=== PATIENT | female | born 1975 | race Caucasian/White ===

== ENCOUNTER 2016-06-18 13:50 | Inpatient (IN) | payer MEDICAID ==
[2016-06-18] VITALS (26 sets, daily range): BP systolic 96–149; BP diastolic 54–112; BMI 22.8
[~2016-06-18] VITALS: Ht 170.2 cm; Wt 60.8 kg
[~2016-06-18 13:50] MED LIST: BACLOFEN20 M1 PO; K-DUR20 MEQ PO; KLONOPIN1 MG PO; PHENOBARBITAL97.2 MG PO; PROZAC40 MG PO; SINGULAIR10 MG PO; SOMA350 MG PO; ULTRAM50 MG PO
[2016-06-18 15:18] LABS: HCG SERUM NEGATIVE (NEGATIVE)
[2016-06-18 15:21] LABS: UDS - AMPHET NEGATIVE QUAL (NEGATIVE); UDS - BARB POSITIVE QUAL (NEGATIVE); UDS - BENZO POSITIVE QUAL (NEGATIVE); UDS - COCAINE NEGATIVE QUAL (NEGATIVE); UDS - METH NEGATIVE QUAL (NEGATIVE); UDS - OPIATE NEGATIVE QUAL (NEGATIVE); UDS - PCP NEGATIVE QUAL (NEGATIVE); UDS - THC POSITIVE QUAL (NEGATIVE)
[2016-06-18 15:27] LABS: BASOPHILS 0.2 % (0-2); EOSINOPHILS 1.5 % (0-7); HEMATOCRIT 40.1 % (36.0-48.0); IMMATURE GRANULOCYTES 0.2 % (0-5); LYMPHOCYTES 22.2 % (15-50); MCH 30.6 pg (26.0-34.0); MCHC 34.9 g/dL (31.0-37.0); MCV 87.6 fL (80.0-100.0); MEAN PLATELET VOLUME 10.4 fL (7.4-10.4); MONOCYTES 13.3 % (2-11); NEUTROPHILS 62.6 % (40-80); RBC 4.58 10x6/uL (4.00-5.40); WBC 5.4 10x3/uL (4.8-10.8)
[2016-06-18 15:28] LABS: PLATELET COUNT 165 10x3/uL (130-400)
[2016-06-18 15:29] LABS: APPEARANCE HAZY (CLEAR); BILIRUBIN NEGATIVE (NEGATIVE); COLOR YELLOW (YELLOW); GLUCOSE NEGATIVE (NEGATIVE); KETONE NEGATIVE (NEGATIVE); LEUKOCYTE ESTERASE TRACE (NEGATIVE); NITRITE POSITIVE (NEGATIVE); PROTEIN TRACE mg/dL (NEGATIVE); UROBILINOGEN NORMAL (NORMAL)
[2016-06-18 15:30] LABS: BACTERIA MANY /hpf (NONE SEEN); EPITHELIAL CELLS 0-5 /hpf (0-5); RED CELLS - URINE 0-5 /hpf (0-5); WHITE CELLS - URINE 0-5 /hpf (0-5)
[2016-06-18 15:36] LABS: ALBUMIN 2.8 g/dL (3.4-5.0); ALKALINE PHOSPHATASE 65 U/L (46-116); ALT (SGPT) 40 U/L (10-68); BILIRUBIN - TOTAL 0.92 mg/dL (0.2-1.3); CALC OSMOLALITY 273 mosm/kg (275-300); CALCIUM 7.5 mg/dL (8.5-10.1); CARBON DIOXIDE 26.2 mmol/L (21.0-32.0); CHLORIDE - SERUM 104 mmol/L (98-107); CREATININE - SERUM 0.8 mg/dL (0.6-1.3); GLUCOSE 91 mg/dL (74-106); POTASSIUM - SERUM 3.6 mmol/L (3.5-5.1); PROTEIN - SERUM 5.9 g/dL (6.4-8.2); SODIUM 137 mmol/L (136-145); UREA NITROGEN 12 mg/dL (7-18); eGFR NON AFRICAN AMERICAN 85 mL/min (90-120)
[2016-06-18 15:46] LABS: ACETAMINOPHEN 2.4 ug/mL (10.0-30.0); PHENOBARBITAL 58.4 ug/mL (15.0-40.0)
--- NOTE | 2016-06-18 17:12 | NUR ---
REPORT RECIEVED FROM ISHAAN. WAITING TO RECIEVE FROM
--- NOTE | 2016-06-18 17:45 | NUR ---
PT ARRIVED AT THIS TIME TO UNIT NOT RESPONSIVE AND ON VENT. NOT SEDATED. ASSESSMENT PERFORMED, PLEASE REVIEW ASSESSMENT FOR INFORMATION. ON LEVOFED, TITRATED TO ORDER PARAMETER GUIDELINES. DR NORTON NOTIFIED VIA PHONE AT THIS TIME. DR RAVI ON UNIT ASSESSING PT AT THIS TIME. ORDERS RECIEVED. ALSO NOTED PT TEMP IS 91.8 RECTALLY, BEAR HUGGER PROVIDED. RESTRAINTS PLACED FOR PT SAFETY TO NOT EXTUBATE SELF. WILL CONTINUE PLAN OF CARE.
--- NOTE | 2016-06-18 18:00 | NUR ---
CONSULT FOR DR NORTON NOTED. NOTIFIED DR NORTON AT THIS TIME.
--- NOTE | 2016-06-18 18:46 | NUR ---
CONSULT FOR DR DAI NOTED. FAXED CONSULT TO [facility]. VERIFICATION OF FAX BY ELISA AT [facility]. ELISA STATED SHE WILL PLACE CONSULT FAX IN DR MERCER BOX.
--- NOTE | 2016-06-18 19:00 | NUR ---
1900: Pt temp 96.7 Oral at this time. Pt remains with Moody Duenas to increase temp.
--- NOTE | 2016-06-18 20:00 | NUR ---
2000: Dr. Salgado here at bedside. New orders rec'd at this time.
--- NOTE | 2016-06-18 21:00 | NUR ---
2100: Bilateral knee high SCDs placed.
--- NOTE | 2016-06-18 22:45 | NUR ---
2245: Pt HR decreased at this time 55-59 bpm. Pt remains with SBP 120's via Left radial ART line. Levophed titrate to keep SBP >90.
--- NOTE | 2016-06-18 23:00 | NUR ---
2300: ABG value and HR change called to Dr. Salgado. New orders rec'd and noted.
[2016-06-19] VITALS (92 sets, daily range): BP systolic 87–147; BP diastolic 52–109; Ht 170.2 cm; Wt 60.8 kg
--- NOTE | 2016-06-19 | NUR ---
0000: Pt mother here at bedside. Pt mother states the pt is not and she wishes to be NOK/POA. Pt's mother states that pt has been turned down x2 for disability and pt has been at her "wits end." Mother states; "she lives in a [place] with no running water." Pts mother states she has not been doing well.
--- NOTE | 2016-06-19 00:15 | NUR ---
0015: Pt temp increased 97.7 Oral at this time. Moody france paused, but remains in place.
--- NOTE | 2016-06-19 02:00 | NUR ---
0200: Pt is bigmeinal showing HR 100 bpm, but with variable pulse palpated. Pt with conduceted PVC per ART line with decresed BP with PVC. ABG done and resuilts called to Dr. Salgado. KCL started via CVL at this time.
[2016-06-19 05:09] LABS: BASOPHILS 0.1 % (0-2); EOSINOPHILS 0 % (0-7); HEMATOCRIT 41.9 % (36.0-48.0); HEMOGLOBIN 14.7 g/dL (12-16); IMMATURE GRANULOCYTES 0.3 % (0-5); LYMPHOCYTES 4.7 % (15-50); MCH 30.4 pg (26.0-34.0); MCHC 35.1 g/dL (31.0-37.0); MCV 86.6 fL (80.0-100.0); MEAN PLATELET VOLUME 10.4 fL (7.4-10.4); MONOCYTES 9.5 % (2-11); NEUTROPHILS 85.4 % (40-80); PLATELET COUNT 201 10x3/uL (130-400); RBC 4.84 10x6/uL (4.00-5.40); RDW 11.9 % (11.5-14.5); WBC 16.6 10x3/uL (4.8-10.8)
[2016-06-19 05:33] LABS: ALBUMIN 2.8 g/dL (3.4-5.0); ANION GAP 12.5 mmol/L (8-16); BILIRUBIN - TOTAL 0.6 mg/dL (0.2-1.3); CALCIUM 7.2 mg/dL (8.5-10.1); CREATININE - SERUM 0.9 mg/dL (0.6-1.3); MAGNESIUM - SERUM 1.3 mg/dL (1.8-2.4); PHOSPHOROUS 1.8 mg/dL (2.5-4.9); POTASSIUM - SERUM 3.5 mmol/L (3.5-5.1); PROTEIN - SERUM 5.9 g/dL (6.4-8.2)
--- NOTE | 2016-06-19 06:00 | NUR ---
0600: Family here. Family states; "I am her ." Update provided at this time. Family member () was with pt on last admission. Pt remains on Vent with RR 16-18x with SPO2 98%. Pt remains with SR with frequent PVCs seen. Pt remains on Levophed gtt to keep SBP >90.
--- NOTE | 2016-06-19 07:30 | NUR ---
AT 0717 75MG LITOAINE ADMIN ORDERED FOR BIGEMMIDY RHYTHM, PT HEART RATE THEN NOTED AT SINUS RHYTHM. AT THIS TIME NOTED RHYTHM AGAIN AT BIGEMMIDY. CALLED DR NORTON FOR ORDERS. NOTED ORDERS TO REPLACE MAGNESIUM WHICH IS AT 1.3, INCREASE BICARB RATE TO 200ML/HOUR, AND CONSULT CARDIOLOGY FOR FREQUENT PVC. ORDERS PLACED AND IN PROCESS.
--- NOTE | 2016-06-19 07:45 | NUR ---
CALLED DR MEJIA ABOUT CONSULT ORDERS RECIEVED. WILL PLACE ORDERS AT THIS TIME.
--- NOTE | 2016-06-19 08:33 | NUR ---
NOTED PT SHOWS FACIAL GRIMACING TO DISCOMFORT. PT ALSO FOLLOWS SIMPLE COMMANDS SUCH SQUEEZE HANDS. PT EKG STILL SHOWING FREQUENT PVCS. ALSO AT THIS TIME SPOKE WITH RADIOLOGY, NOTED THE NGT NEEDED TO BE ADVANCED APPROX 15CM. ADVANCED NGT AT THIS TIME. PLACEMENT VERIFIED VIA AUSCULATION. WILL CONTINUE PLAN OF CARE.
--- NOTE | 2016-06-19 08:59 | NUR ---
DR MEJIA HERE ROUNDING ON PT.
--- NOTE | 2016-06-19 12:06 | NUR ---
PT MOTHER IN ROOM. NOTED SHE STATED YEIMY LONDONO, WHO CLAIMS TO BE PT , IS NOT PTS AND PTS MOTHER STATES SHE WISHES TO MAKE DECISIONS FOR PT AND WISHES TO BE THE INDIVIDUAL NOTIFIED. ALSO AT THIS TIME CALL IN CODE "BLUE" SELECTED. WILL CONTINUE PLAN FO CARE.
--- NOTE | 2016-06-19 12:15 | NUR ---
PATIENT REMAINS INTUBATED, SPOKE WITH MOTHER ABOUT PATIENTS MEDICATIONS, FAMILY DOES NOT KNOW LAST DOSE TAKEN OR WHEN, NOTED IN EMAR
--- NOTE | 2016-06-19 13:25 | NUR ---
NOTED PT RHYTHM WENT FROM SINUS TO BIGIMINY FOR A FEW MINUTES THEN TO VTACH FOR A FEW SECONDS FOLLOWED BY SINUS RHYTHM. CALLED DR MEJIA TO NOTIFY. NOTED ORDER TO KEEP LITOCAINE DRIP. CAN BOLUS 70MG LITOCAINE PRN. DR MEJIA ALSO STATED THAT HE DID NOT WANT AMIO. HE STATED HE WANTED TO LOOK AT PTS ECHO BEFORE MAKING FURTHER ORDERS.
--- NOTE | 2016-06-19 13:48 | NUR ---
HEART RHYTHM STILL NOTED TO HAVE BIGIMINY RHYTHM. WILL CONTINUE TO OBSERVE.
--- NOTE | 2016-06-19 13:58 | NUR ---
IO LINE TO LEFT SHOULDER DC AT THIS TIME. PRESSURE APPLIED TO SITE, GAUZE PLACED. SCANT BLEEDING. NEEDLE NOTED INTACT AND DISCARDED IN SHARPS. WILL CONTINUE PLAN OF CARE.
--- NOTE | 2016-06-19 14:00 | NUR ---
POTASSIUM LEVEL OF 2.5 NOTED WITH ABG DRAW. PT ON ELECTROLYTE PROTOCOL. REPLACING POTASSIUM PER ORDERS TO ELECTROLYTE PROTOCOL.
--- NOTE | 2016-06-19 14:47 | NUR ---
SINUS RHYTHM NOTED AT THIS TIME. NO ACUTE DISTRESS. PT TURNED Q2H. WILL CONTINUE PLAN OF CARE.
--- NOTE | 2016-06-19 15:09 | NUR ---
FAMILY AT BEDSIDE, NIECE. UPDATE GIVEN. WILL CONTINUE PLAN FO CARE.
--- NOTE | 2016-06-19 15:34 | NUR ---
BIGIMINY RHYTHM NOTED AT THIS TIME. WILL CONTINUE TO OBSERVE.
--- NOTE | 2016-06-19 16:27 | NUR ---
NO CHANGE. RHYTHM STILL BIGIMITY. PT RECIEVING POTASSIUM REPLACEMENT PER ELECTROLYTE PROTOCOL. TURNED Q2H. WILL CONTINUE TO OBSERVE.
--- NOTE | 2016-06-19 18:28 | NUR ---
FAMILY AT BEDSIDE. CLARIFICATION NOTED: SPOKE WITH YEIMY LONDONO WHO CLAIMS TO BE PT . YEIMY STATED HE IS NOT LEGALLY TO PT. ALSO NOTED AT THIS TIME YEIMY AND PTS COUSIN STATED TO THIS NURSE THAT PT IN THE PAST HAD STATED TO THEM THAT SHE DOES NOT WANT HER MOM INVOLVED IN HER CARE. THEY ALSO NOTIFIED THIS NURSE THAT PT HAS AN ADULT SON NAMED RICHARD AND THEY WOULD LATER FIND OUT AND NOTIFY NURSE RICHARD'S INFORMATION SO HE MAY BE CONTACTED FOR PT CARE INVOLVEMENT. WILL ALSO NOTIFY CASE MANAGEMENT OF THIS. WILL CONTINUE PLAN OF CARE.
--- NOTE | 2016-06-19 19:00 | NUR ---
1900: Pt remains on Vent with RR 16x with SPO2 100%. Pt continues with SR with frequent PVCs with occasional 3-8 beat V-Tach, Bigeminy, and cuplets. Pt remains on Lidocaine gtt 0.5 mg/min. Pt NGT remains to LIS with little return.
--- NOTE | 2016-06-19 20:00 | NUR ---
2000: Pt son here at bedside. Disucced pt condition, plan of care, and ICU protocols with son. Verbalized understanding. Pt's son states that he and his mother have little contact with the pt's mother. It was his understanding that his mother was I believe. We discussed this at some length and advised that watch caser may call to clarify.
--- NOTE | 2016-06-19 21:00 | NUR ---
2100: Pt remains on vent with eyes closed. Pt grimmaces with painfull stimuli. Pt does not open eyes completely. Pt pupils remains SKYLER+ bilat. Pt does move x4 extrem at times vs gravity, but does not move with commands. Pt remains with no sedation gtts at this time.
--- NOTE | 2016-06-19 22:50 | NUR ---
2250: Pt mother called and update provided at this time.
[2016-06-20] VITALS (85 sets, daily range): BP systolic 91–151; BP diastolic 54–90
--- NOTE | 2016-06-20 01:00 | NUR ---
0100: MS/Poison control called and updated.
--- NOTE | 2016-06-20 01:50 | NUR ---
0150: Pt convereted to SR 80's at this time.
--- NOTE | 2016-06-20 02:58 | NUR ---
0258: Occasional PVCs seen on CM. ABG value returned and KCL replacement started as per electolyte protocol.
[2016-06-20 05:10] LABS: BASOPHILS 0.1 % (0-2); EOSINOPHILS 0 % (0-7); HEMATOCRIT 40.8 % (36.0-48.0); HEMOGLOBIN 14.1 g/dL (12-16); IMMATURE GRANULOCYTES 0.5 % (0-5); LYMPHOCYTES 5.2 % (15-50); MCH 30.1 pg (26.0-34.0); MCHC 34.6 g/dL (31.0-37.0); MCV 87.2 fL (80.0-100.0); MEAN PLATELET VOLUME 10.6 fL (7.4-10.4); NEUTROPHILS 83.2 % (40-80); PLATELET COUNT 174 10x3/uL (130-400); RBC 4.68 10x6/uL (4.00-5.40); RDW 12.2 % (11.5-14.5); WBC 17.6 10x3/uL (4.8-10.8)
[2016-06-20 05:37] LABS: ALBUMIN 2.2 g/dL (3.4-5.0); ALKALINE PHOSPHATASE 64 U/L (46-116); CARBON DIOXIDE 25.5 mmol/L (21.0-32.0); CHLORIDE - SERUM 100 mmol/L (98-107); CREATININE - SERUM 0.8 mg/dL (0.6-1.3); GLUCOSE 194 mg/dL (74-106); POTASSIUM - SERUM 3.6 mmol/L (3.5-5.1); PROTEIN - SERUM 5.6 g/dL (6.4-8.2); SODIUM 135 mmol/L (136-145); TROPONIN-I 0.016 ng/mL (0.000-0.060); eGFR NON AFRICAN AMERICAN 85 mL/min (90-120)
[2016-06-20 05:38] LABS: MAGNESIUM - SERUM 1.5 mg/dL (1.8-2.4)
[2016-06-20 05:39] LABS: ALT (SGPT) 28 U/L (10-68); CALC OSMOLALITY 271 mosm/kg (275-300); PHOSPHOROUS 1.4 mg/dL (2.5-4.9); UREA NITROGEN 3 mg/dL (7-18)
--- NOTE | 2016-06-20 06:00 | NUR ---
0600: Pt SR on CM 80's at this time. Pt remains on Levophed with Lidocaine off. Pt remains on vent and does withdraw/grimmace to pain. No sedation gtt at this time.
--- NOTE | 2016-06-20 07:57 | NUR ---
HEART RATE SINUS RHYTHM. PT FOLLOWS COMMANDS. FACIAL GRIMACING TO DISCOMFORT. RECIEVING ELECTROLYTE REPLACEMENT PER PROTOCOL ORDERS. TURNED Q2H. WILL CONTINUE PLAN OF CARE.
[2016-06-20 07:59] LABS: VALPROIC ACID (DEPAKOTE) 19.1 ug/mL (50.0-100.0)
[2016-06-20 08:02] LABS: PHENOBARBITAL 36.2 ug/mL (15.0-40.0)
--- NOTE | 2016-06-20 09:48 | NUR ---
TURNED Q2H. NO CHANGE. IN SINUS RHYTHM. RECIEVING ELECTROLYTE REPLACEMENTS ORDERED. WILL CONTINUE PLAN OF CARE.
--- NOTE | 2016-06-20 11:20 | NUR ---
NOTED ORDER TO ADVANCE NGT 15CM. PERFORMED AT THIS TIME. PLACEMENT VERIFICATION VIA AUSCULATION. ALSO KUB ORDERED ORDERED BY DR NORTON FOR PLACEMENT VERIFICATION. WILL CONTINUE PLAN OF CARE.
--- NOTE | 2016-06-20 13:10 | NUR ---
RECIEVED CALL FROM DR NICHOLE, ORDERS PLACED. WILL CONTINUE PLAN OF CARE
--- NOTE | 2016-06-20 14:00 | NUR ---
OLD NGT NOTED NOT SUCTIONING ANYTHING AND BECAME DIFFICULT TO AUSCULTATE FOR PLACEMENT VERIFICATION. ALSO WAS NOTED FROM [facility] THAT WAS NOT IN PLACE EVEN AFTER ADVANCING TUBE MULTIPLE TIMES. OLD NGT REMOVED, NOTED THREE KINKS TO TUBING. NEW NGT PLACED AT THIS TIME, 18 MACED[address]IAN. PLACEMENT VERIFICATION VIA AUSCULTATION WELL KUB ORDERED TO VERIFY PLACEMENT. NOW SEEING SMALL AMOUTN OF THICK BLACK FLUID INTO SUCTION CONTAINER SUCH THE COLOR OF CHARCOAL WHICH HAD BEEN RECENTLY USED FOR PT. WILL CONTINUE PLAN OF CARE.
--- NOTE | 2016-06-20 17:24 | NUR ---
NO CHANGE. IN SINUS RHYTHM. TURNED Q2H. WILL CONTINUE PLAN OF CARE.
--- NOTE | 2016-06-20 19:30 | NUR ---
SHIFT ASSESSMENT COMPLETE PER FLOWSHEET, PATIENT ON VENT. WILL AWAKEN TO STIMULI AND FOLLOW COMMANDS, QUICKLY FALLS BACK TO SLEEP. NGT IN PLACE, PLACEMENT VERIFIED WITH AIR BOLUS. ETT TUBE SECURED. ORAL CARE GIVEN. S1S2 NOTED WITH NS ON MONITOR. RR EVEN, LUNG SOUNDS CTA. BOWEL SOUNDS HYPOACTIVE, SOFT TO PALPATION. PERIPHERAL PULSES +2, CAP REFILL < 3 SECONDS. CVL IN LEFT GROIN, SEE IV FLOWSHEET FOR DETAILS. DRESSING C/D/I, NO S/S OF INFECTION. WILL MONITOR.
--- NOTE | 2016-06-20 20:30 | NUR ---
TUBE FEEDINGS BEGAN @ 20CC/HR, PLACEMENT VERIFIED.
--- NOTE | 2016-06-20 21:00 | NUR ---
NO VISITORS AT THIS TIME.
[2016-06-20 21:05] LABS: PHOSPHOROUS 1.9 mg/dL (2.5-4.9); POTASSIUM - SERUM 3.5 mmol/L (3.5-5.1)
--- NOTE | 2016-06-20 21:05 | NUR ---
LEVOPHED TURNED OFF. WILL MONITOR BP.
--- NOTE | 2016-06-20 23:00 | NUR ---
REASSESSMENT COMPLETE, NO ACUTE CHANGES. PATIENT WILL WAKE UP AND FOLLOW COMMANDS. VERY LETHARGIC. ORAL CARE GIVEN AND PATIENT CLEANED UP, COMPLETE LINEN CHANGE. VSS.
[2016-06-21] VITALS (33 sets, daily range): BP systolic 76–150; BP diastolic 52–96
--- NOTE | 2016-06-21 01:00 | NUR ---
ORAL CARE GIVEN, PATIENT TURNED. VSS.
--- NOTE | 2016-06-21 03:00 | NUR ---
REASSESSMENT COMPLETE, NO ACUTE CHANGES. SEE FLOWSHEET FOR DETAILS. RESIDUAL CHECKED, NO RESIDUAL PRESENT. PATIENT AWAKENS EASILY AND WILL FOLLOW COMMANDS.
--- NOTE | 2016-06-21 05:00 | NUR ---
PATIENT RESTING WELL. OPENS EYES TO VOICE. FOLLOWS COMMANDS. VSS.
[2016-06-21 05:24] LABS: BASOPHILS 0.2 % (0-2); EOSINOPHILS 0.5 % (0-7); HEMATOCRIT 35.2 % (36.0-48.0); HEMOGLOBIN 11.9 g/dL (12-16); IMMATURE GRANULOCYTES 0.2 % (0-5); LYMPHOCYTES 8.2 % (15-50); MCHC 33.8 g/dL (31.0-37.0); MCV 88.7 fL (80.0-100.0); MONOCYTES 11.9 % (2-11); PLATELET COUNT 153 10x3/uL (130-400); RBC 3.97 10x6/uL (4.00-5.40); RDW 12.4 % (11.5-14.5)
[2016-06-21 05:25] LABS: ALBUMIN 1.9 g/dL (3.4-5.0); ALKALINE PHOSPHATASE 71 U/L (46-116); ALT (SGPT) 27 U/L (10-68); CALCIUM 7.2 mg/dL (8.5-10.1); CARBON DIOXIDE 27.7 mmol/L (21.0-32.0); CHLORIDE - SERUM 105 mmol/L (98-107); CREATININE - SERUM 0.6 mg/dL (0.6-1.3); MAGNESIUM - SERUM 1.7 mg/dL (1.8-2.4); PHOSPHOROUS 1.9 mg/dL (2.5-4.9); POTASSIUM - SERUM 3.7 mmol/L (3.5-5.1); PROTEIN - SERUM 5.3 g/dL (6.4-8.2); SODIUM 138 mmol/L (136-145); eGFR NON AFRICAN AMERICAN > 90 mL/min (90-120)
[2016-06-21 05:31] LABS: WBC 10.4 10x3/uL (4.8-10.8)
[2016-06-21 05:39] LABS: CALC OSMOLALITY 274 mosm/kg (275-300); GLUCOSE 131 mg/dL (74-106); UREA NITROGEN 4 mg/dL (7-18)
--- NOTE | 2016-06-21 11:09 | NUR ---
0700 PT ON VENT WITH NO SEDATION AT THIS TIME. APPEARS TO BE COMFORTABLE. ABLE TO FOLLOW COMMANDS BUT INCONSISTENT. ORAL CARE PERFORMED. VITAL SIGNS STABLE, PT OFF LEVOPHED. WILL CONTINUE TO MONITOR
--- NOTE | 2016-06-21 11:11 | NUR ---
0900 ORAL CARE PERFORMED. PT NOW ON DROPLET ISO FOR STAPH AREUS IN SPUTUM. WILL USE PPE AND CONTINUE TO MONITOR PT.
--- NOTE | 2016-06-21 11:11 | NUR ---
1100 FROYLAN FROM POISION CONTROL AT [facility] CALLED. UPDATE GIVEN ON PT STATUS THIS MORNING. NO FURTHER CHANGES AT THIS TIME
--- NOTE | 2016-06-21 12:11 | NUR ---
Nutrition Follow Up: Chart reviewed and spoke with RN. Pt is tolerating TF of Pulmocare @ 20 ml/hr. I>O. Wt loss 6# since admit. Labs reviewed - Glucose elevated. Meds noted. Will put order in to advance TF 10 ml every 6-8 hours as tolerated to goal rate of 50 ml/hr. RD will continue to monitor pt progress.
--- NOTE | 2016-06-21 13:00 | NUR ---
PT ON CPAP AND TOLERATING WELL. NO SEDATION. WILL CONTINUE TO MONITOR
--- NOTE | 2016-06-21 15:00 | NUR ---
DR MUNIZ CALLED AND UPDATE GIVEN. PT EXTUBATED PER RESPIRATORY. TOLERATED WELL. O2 SAT 98% AND RESPIRATIONS WNL. WILL CONTINUE TO MONITOR CLOSELY. VITAL SIGNS STABLE
--- NOTE | 2016-06-21 17:00 | NUR ---
UPDATE GIVEN TO FAMILY. PT REMAINS STABLE BREATHING 4L NC. WILL CONTINUE TO MONITOR
--- NOTE | 2016-06-21 19:45 | NUR ---
ASSESSMENT COMPLETE. S1S2. RR SHALLOW DIMINISHED BILATERALLY IN LOWER LOBES. PT IN RESTRAINTS; PULLING AT LINES; CONFUSED. AROUSES TO SPEECH. GARBLED SPEECH. LEFT EYE PERIORBITAL BRUSING AND EDEMA. COREY IN PLACE. CVL TO GROIN. 4L VIA NC. RADIAL AND PEDAL PULSES PALPATED. NO DISTRESS NOTED. VSS. WILL CONTINUE TO MONITOR.
--- NOTE | 2016-06-21 21:44 | NUR ---
FAMILY AT BEDSIDE. UPDATE GIVEN. QUESTIONS ANSWERED.
--- NOTE | 2016-06-21 23:10 | NUR ---
REASSESSMENT COMPLETE. NO CHANGES FROM PREVIOUS ASSESSMENT. VSS. NO DISTRESS NOTED. WILL CONTINUE TO MONITOR.
[2016-06-22] VITALS (24 sets, daily range): BP systolic 112–155; BP diastolic 72–99
--- NOTE | 2016-06-22 01:13 | NUR ---
PT RESTING; EYES CLOSED. VSS. NO DISTRESS NOTED. WILL CONTINUE TO MONITOR.
--- NOTE | 2016-06-22 03:10 | NUR ---
REASSESSMENT COMPLETE. NO CHANGES FROM PREVIOUS ASSESSMENT. WILL CONTINUE TO MONITOR.
--- NOTE | 2016-06-22 04:47 | NUR ---
I/O COLLECTED. LAB DRAWN.
[2016-06-22 04:56] LABS: BASOPHILS 0.3 % (0-2); EOSINOPHILS 2.9 % (0-7); HEMATOCRIT 32.8 % (36.0-48.0); HEMOGLOBIN 10.9 g/dL (12-16); IMMATURE GRANULOCYTES 0.3 % (0-5); LYMPHOCYTES 13.1 % (15-50); MCH 29.8 pg (26.0-34.0); MCHC 33.2 g/dL (31.0-37.0); MCV 89.6 fL (80.0-100.0); MEAN PLATELET VOLUME 9.7 fL (7.4-10.4); MONOCYTES 12.4 % (2-11); PLATELET COUNT 169 10x3/uL (130-400); RBC 3.66 10x6/uL (4.00-5.40); RDW 12.6 % (11.5-14.5)
[2016-06-22 05:23] LABS: ALKALINE PHOSPHATASE 79 U/L (46-116); BILIRUBIN - TOTAL 0.16 mg/dL (0.2-1.3); CALCIUM 7.8 mg/dL (8.5-10.1); CARBON DIOXIDE 33.6 mmol/L (21.0-32.0); CHLORIDE - SERUM 106 mmol/L (98-107); CREATININE - SERUM 0.6 mg/dL (0.6-1.3); MAGNESIUM - SERUM 1.7 mg/dL (1.8-2.4); POTASSIUM - SERUM 3.7 mmol/L (3.5-5.1); PROTEIN - SERUM 5.4 g/dL (6.4-8.2); SODIUM 141 mmol/L (136-145); UREA NITROGEN 4 mg/dL (7-18); eGFR NON AFRICAN AMERICAN > 90 mL/min (90-120)
[2016-06-22 05:27] LABS: ALT (SGPT) 46 U/L (10-68); CALC OSMOLALITY 282 mosm/kg (275-300); GLUCOSE 192 mg/dL (74-106); PHOSPHOROUS 2.4 mg/dL (2.5-4.9)
--- NOTE | 2016-06-22 05:42 | NUR ---
1PKT OF 3 PHOS GIVEN. SEE EMAR FOR DETAILS.
--- NOTE | 2016-06-22 08:19 | NUR ---
0700 PT DROWSY BUT WAKES UP AND FOLLOWS COMMANDS. DISORIENTED TO TIME. NORMAL SINUS ON MONITOR. BICARB INFUSING IN LEFT GROIN CVL. O2 2L AND NO BREATHING DIFFICULTY NOTED. PT REMAINS IN BILAT WRIST RESTRAINTS DUE TO PULLING AT LINES AND TUBES. PT REPOSITIONED IN BED AND TUBE FEEDINGS RESUMED.
--- NOTE | 2016-06-22 09:00 | NUR ---
PT ASLEEP AT THIS TIME. MEDS GIVEN AND PT STABLE AT THIS TIME. HOB 45 WHILE TUBE FEEDINGS INFUSING.
--- NOTE | 2016-06-22 11:00 | NUR ---
PT REPOSITIONED IN BED AND ORAL CARE PERFORMED. ATTEMPTING TO PULL NGT. EXPLAINED NEED FOR TUBE TO PT. CONTINUE CARE IN RESTRAINTS AT THIS TIME
--- NOTE | 2016-06-22 13:00 | NUR ---
NO ACUTE CHANGES IN PT STATUS AT THIS TIME. WILL CONTINUE TO MONITOR
--- NOTE | 2016-06-22 14:01 | CN ---
PATIENT NAME:FERNY SWANN MEDICAL RECORD: [id number] : [birth year] LOCATION:[id number] ADMIT DATE: 06/18/16 ACCOUNT: [id number] CONSULTING PHYSICIAN: NERY DAI MD REFERRING PHYSICIAN: JAY RAVI M.D. DATE OF CONSULTATION: 06/21/2016 Psychiatric Consultation IDENTIFYING DATA: The patient is 40 years old and she was admitted to the hospital on a voluntary basis. CHIEF COMPLAINT: Overdose. HISTORY OF PRESENT ILLNESS: The patient took approximately 300 pills of various sorts. She had just had a prescription refilled and took all of it. She did this in an attempt to kill herself. In particular of why she did this and what led up whether unknown to me and obviously I cannot interview her since she is on a ventilator. ASSESSMENT: 1. Major depression. 2. Status post overdose. PLAN: The patient will be interviewed once she is awake, conscious and breathing on her own. I can say with almost virtual certainty that I am going to recommend inpatient psychiatric care for her since I cannot conceive of a situation in which I would allow someone, who has made such a serious attempt on her life to be released from this level of care with only outpatient followup. There is every indication and in fact overwhelming evidence that this was a deliberate attempt to kill herself and she is going to require inpatient care since she obviously very nearly succeeded in completing this suicide. TRANSINT:[id number] Voice Confirmation ID: [id number] DOCUMENT ID: [id number] NERY DAI MD at 1401 CC: [id number] DICTATION DATE: 06/21/16 1210 APPLIANCE TECHNICIAN: 06/21/16 1320 ADM IN [facility] [address] [place] [address]
--- NOTE | 2016-06-22 16:00 | NUR ---
RESTRAINTS REMOVED WITH PT MENTAL STATUS IMPROVING. WILL CONTINUE TO MONITOR CLOSELY FOR ANY CHANGES
--- NOTE | 2016-06-22 16:00 | NUR ---
PT SEEN BY SPEECH THERAPY. IS NOW ON [facility] SOFT DIET WITH THIN LIQUIDS. WILL CONTINUE TO MONITOR FOR ASPIRATION.
--- NOTE | 2016-06-22 18:00 | NUR ---
PT CLEANED AND COMPLETE LINEN CHANGE. ABLE TO EAT DINNER INDEPENDENTLY. VITAL SIGNS STABLE. WILL CONTINUE TO MONITOR
--- NOTE | 2016-06-22 19:30 | NUR ---
ASSESSMENT COMPLETE. S1S2. PT CONFUSED. RR SHALLOW DIMINISHED IN MID AND LOWER LOBES. RADIAL AND PEDAL PULSES PALPATED. LT GROIN CVL; PATENT. SCD AND COREY IN PLACE. PERRLA.
--- NOTE | 2016-06-22 21:15 | NUR ---
FAMILY AT BEDSIDE. UPDATE GIVEN.
--- NOTE | 2016-06-22 23:20 | NUR ---
REASSESSMENT COMPLETE, NO CHANGES NOTED, PT RESTING AT THIS TIME, NO NEEDS NOTED, VSS, CALL LIGHT IN REACH
[2016-06-23] VITALS (21 sets, daily range): BP systolic 108–135; BP diastolic 8–94
--- NOTE | 2016-06-23 01:19 | NUR ---
PT AWAKE. CONFUSED. STATED HAVING AUDITORY HALLUCINATIONS; COULDN'T EXPLAIN.
--- NOTE | 2016-06-23 03:20 | NUR ---
REASSESSMENT COMPLETE. NO CHANGES FROM PREVIOUS ASSESSMENT. VSS. CALL LIGHT IN REACH. NO DISTRESS NOTED. WILL CONTINUE TO MONITOR.
--- NOTE | 2016-06-23 04:15 | NUR ---
COMPLETE BED BATH. COMPLETE LINEN CHANGE.
[2016-06-23 04:24] LABS: BASOPHILS 0.5 % (0-2); EOSINOPHILS 4.5 % (0-7); HEMATOCRIT 35.7 % (36.0-48.0); IMMATURE GRANULOCYTES 0.5 % (0-5); LYMPHOCYTES 26.4 % (15-50); MCH 30.1 pg (26.0-34.0); MCHC 33.6 g/dL (31.0-37.0); MCV 89.5 fL (80.0-100.0); MEAN PLATELET VOLUME 9.6 fL (7.4-10.4); MONOCYTES 15.9 % (2-11); NEUTROPHILS 52.2 % (40-80); PLATELET COUNT 224 10x3/uL (130-400); RBC 3.99 10x6/uL (4.00-5.40); RDW 12.4 % (11.5-14.5); WBC 6.2 10x3/uL (4.8-10.8)
[2016-06-23 04:35] LABS: ALBUMIN 2.4 g/dL (3.4-5.0); ALKALINE PHOSPHATASE 96 U/L (46-116); BILIRUBIN - TOTAL 0.27 mg/dL (0.2-1.3); CALCIUM 8.9 mg/dL (8.5-10.1); CARBON DIOXIDE 30.1 mmol/L (21.0-32.0); CHLORIDE - SERUM 108 mmol/L (98-107); CREATININE - SERUM 0.6 mg/dL (0.6-1.3); MAGNESIUM - SERUM 1.9 mg/dL (1.8-2.4); POTASSIUM - SERUM 3.6 mmol/L (3.5-5.1); PROTEIN - SERUM 6.3 g/dL (6.4-8.2); SODIUM 142 mmol/L (136-145); eGFR NON AFRICAN AMERICAN > 90 mL/min (90-120)
[2016-06-23 04:38] LABS: ALT (SGPT) 74 U/L (10-68); CALC OSMOLALITY 279 mosm/kg (275-300); GLUCOSE 76 mg/dL (74-106); UREA NITROGEN 6 mg/dL (7-18)
--- NOTE | 2016-06-23 05:18 | NUR ---
TPM DRSG CHANGE ADM. L SUBCLAV DRSG CHANGE ADM. VSS NO NEW CHANGES. WILL CONTINUE TO MONITOR
--- NOTE | 2016-06-23 07:35 | NUR ---
REPORT RECD PT CARE ASSUMED. PT RESTING WITH EYES CLOSED AT THIS TIME. PT AROUSES EASILY, ANSWERS MOST QUESTION APPORPRIATLEY. PT FOLLOWS COMMANDS. S1S2 NOTED, SR PER CM. ALL VSS. SEE SHIFT ASSESSMENT FOR FURTHER DETAILS. WILL MONITOR.
--- NOTE | 2016-06-23 08:21 | NUR ---
DR NICHOLE AT BEDSIDE TO SEE PT.
--- NOTE | 2016-06-23 08:26 | NUR ---
PT PROVIDED WITH BREAKFAST TRAY. PT SITS UP TO FEED SELF.
--- NOTE | 2016-06-23 09:00 | NUR ---
PT EATS VERY LITTLE OF BREAKFAST AT THIS TIME.
--- NOTE | 2016-06-23 10:03 | NUR ---
NUTRITION MONITORING & EVAL CHART REVIEWED, PT EXTUBATED, MECH SOFT DIET STARTED. WILL MONITOR PO INTAKE, HONOR FOOD PREFERENCES. RD FOLLOWING
[2016-06-23] MEDS ORDERED: PHENOBARBITAL97.2 MG PO (10:06)
[2016-06-23] MEDS ORDERED: ROBAXIN500 MG PO (10:07)
[2016-06-23] MEDS ORDERED: OXYBUTYNIN CHLOR5 MG PO (10:07)
[2016-06-23] MEDS ORDERED: TOFRANIL25 MG PO (10:08)
[2016-06-23] MEDS ORDERED: DEPAKOTE ER500 MG PO ×2 (10:09)
[2016-06-23] MEDS ORDERED: DESERYL100 MG PO (10:10)
[2016-06-23] MEDS ORDERED: CELEXA40 MG PO (10:10)
--- NOTE | 2016-06-23 12:00 | NUR ---
PT PROVIDED WITH LUNCH TRAY. PT MOTHER AT BEDSIDE FOR VISIATION. VSS.
--- NOTE | 2016-06-23 14:00 | NUR ---
Patient Name: FERNY SWANN Admission Status: ER Accout number: [id number] Admission Date: 06-18-2016 : 1975 Admission Diagnosis:POISONING BY UNSP DRUG/MEDS/BIOL SUBST, UNDETERMINED, I Attending: IRINA Current LOS: 5 Anticipated DC Date: 06-24-2016 Planned Disposition: Psych facility Primary Insurance: MEDICAID [place] Discharge Planning Comments: CM MET WITH PATIENT REGARDING D/C PLANS. PATIENT STATED SHE LIVED WITH HER BOYFRIEND AND IS LEAVING HIM. PATIENT STATED SHE IS INDEPENDENT WITH HER CARE. PATIENT STATED SHE IS NOT SUICIDAL AT THIS TIME. PATIENT AGREED TO REFERRAL TO [facility]. CM SPOKE WITH KOURTNEY AT [facility] AND SHE WILL LET CM KNOW IF PATIENT IS ACCEPTED. PCP [facility] RONI SALAMANCA (NIECE) [phone] Rural Carrier Associate: Temitope Sy Is the patient Alert and Oriented? Yes 0 * PCP [facility] 0 * Preadmission Environment Home with Family 0 * ADLs Independent 0 * Additional services required to return to the preadmission environment? Yes 0 * Can the patient safely return to the preadmission environment? Yes 0 * Has this patient been hospitalized within the prior 30 days at any hospital? No 0 Grand Total: 0
--- NOTE | 2016-06-23 14:26 | NUR ---
PT ASSISTED UP TO CHAIR. PT DOES WELL WITH THIS.
--- NOTE | 2016-06-23 15:15 | NUR ---
PT /BOYFRIEND HERE FOR VISITATION. VISITOR VOICES CONCERNS ABOUT PLACEMNT. VISITOR SPEAKING WITH ED TEACHER REGAURDING PLAN OF CARE.
--- NOTE | 2016-06-23 15:42 | NUR ---
PT OFF OF NC AT THIS TIME. SATURATION ACCEPTABLE.
--- NOTE | 2016-06-23 16:39 | NUR ---
COREY D/C AT THIS TIME. PT USED BEDSIDE COMMODE WITHOUT DIFFICULTY. PT RETURNS TO CHAIR.
--- NOTE | 2016-06-23 17:20 | NUR ---
PT SITS IN CHAIR TO EAT DINNER AND RETURNS TO BED.
--- NOTE | 2016-06-23 19:15 | NUR ---
ASSESSMENT COMPLETE. S1S2. PT CONFUSED. RR NON LABORED; DIMINISHED BILATERALLY IN LOWER EXTREMITES. ON ROOM AIR. NSR. VSS. NO DISTRESS NOTED. PT REFUSES TO KEEP TELEMETRY LEADS ON OR BLOOD PRESSURE CUFF. PT CHAIRFAST. UNSTEADY GAIT. SWAYING BALANCE.
--- NOTE | 2016-06-23 21:15 | NUR ---
FAMILY AT BEDSIDE. UPDATE GIVEN. QUESTIONS ANSWERED. PT PERSONAL MEDICATIONS SENT WITH FAMILY TO TAKE HOME. FAMILY AND PT NOTIFIED THIS NURSE THAT THE MOTHER OF THE PT WAS NOT ALLOWED TO VISIT. PLACED SIGN ON DOOR STATING VISITORS ARE TO SEE THE NURSE BEFORE ENTERING THE ROOM.
--- NOTE | 2016-06-23 22:50 | NUR ---
REASSESSMENT COMPLETE. NO CHANGES FROM PREVIOUS ASSESSEMENT. VSS. NO DISTRESS NOTED. WILL CONTINUE TO MONITOR.
--- NOTE | 2016-06-24 02:08 | NUR ---
PT RESTING; EYES CLOSED. VSS. NO DISTRESS NOTED. CALL LIGHT IN REACH. WILL CONTINUE TO MONITOR.
[2016-06-24 03:00] VITALS: BP 99/43
--- NOTE | 2016-06-24 03:10 | NUR ---
REASSESSMENT COMPELTE. NO CHANGES FROM PREVIOUS ASSESSMENT. VSS. NO DISTRESS NOTED. WILL CONTINUE TO MONITOR.
[2016-06-24 03:41] LABS: BASOPHILS 0.7 % (0-2); HEMOGLOBIN 12.3 g/dL (12-16); LYMPHOCYTES 35.3 % (15-50); MCHC 34.2 g/dL (31.0-37.0); MCV 87.8 fL (80.0-100.0); MEAN PLATELET VOLUME 9.3 fL (7.4-10.4); MONOCYTES 17.6 % (2-11); NEUTROPHILS 40.4 % (40-80); PLATELET COUNT 222 10x3/uL (130-400); RDW 12.2 % (11.5-14.5)
[2016-06-24 04:12] LABS: ALBUMIN 2.4 g/dL (3.4-5.0); ALKALINE PHOSPHATASE 94 U/L (46-116); BILIRUBIN - TOTAL 0.23 mg/dL (0.2-1.3); CALCIUM 8.9 mg/dL (8.5-10.1); CARBON DIOXIDE 30.9 mmol/L (21.0-32.0); CHLORIDE - SERUM 107 mmol/L (98-107); CREATININE - SERUM 0.7 mg/dL (0.6-1.3); GLUCOSE 81 mg/dL (74-106); POTASSIUM - SERUM 3.6 mmol/L (3.5-5.1); PROTEIN - SERUM 6.4 g/dL (6.4-8.2); SODIUM 141 mmol/L (136-145); THYROID STIMULATING HORMONE 2.92 uIU/mL (0.36-3.74); eGFR NON AFRICAN AMERICAN > 90 mL/min (90-120)
[2016-06-24 04:13] LABS: ALT (SGPT) 54 U/L (10-68); CALC OSMOLALITY 278 mosm/kg (275-300); UREA NITROGEN 10 mg/dL (7-18)
[2016-06-24 07:00] VITALS: BP 110/84
--- NOTE | 2016-06-24 07:00 | NUR ---
PT AWAKE ALERT AND ORIENTED X4. ABLE TO FOLLOW COMMANDS AND VERBALIZES UNDERSTANDING OF TEACHING. COMPLAINS OF SMALL HEADACHE AT THIS TIME, PAIN 4/10. NEW EKG LEADS PLACED ON PT AND SHE IS NORMAL SINUS ON MONITOR. REFUSES TO KEEP BP CUFF ON. WILL CHECK TOLERATED. BREATHING STABLE ON ROOM AIR. PT SITTING UP ABLE TO EAT BREAKFAST INDEPENDENTLY. WILL CONTINUE TO MONITOR AND CONSULT WITH CASE MANAGEMENT TODAY ABOUT PLACEMENT
--- NOTE | 2016-06-24 09:00 | NUR ---
PT ASLEEP AT THIS TIME WITH NO SIGNS OF DISTRESS NOTED. VITAL SIGNS STABLE. WILL CONTINUE TO MONITOR
--- NOTE | 2016-06-24 10:20 | NUR ---
Nutrition follow-up: Diet advanced to regular mechanical soft PO intake poor at this time Labs reviewed Wt: 133# Will provide food choices with selecitve menus and honor food preferences within diet restrictions. RDN following.
--- NOTE | 2016-06-24 10:59 | EC ---
PATIENT:FERNY SWANN DATE OF SERVICE: 06/18/16 SEX: F MEDICAL RECORD: [id number] DATE OF : [birth year] LOCATION:[facility] D230 AGE OF PATIENT: 40 ADMISSION DATE: 06/18/16 REFERRING PHYSICIAN: INTERPRETING PHYSICIAN: GABRIEL ESTRADA M.D. ECHOCARDIOGRAM REPORT ECHO CHARGES 4 ECHO COMPLETE CLINICAL DIAGNOSIS: ARRHYTHMIA/HYPOTENSION DRUG OVERDOSE ECHOCARDIOGRAPHIC MEASUREMENTS (adult normal given) AC root (d.<3.7cm) 3.3 LV Septum d (<1.2 cm> 1.4 Valve Excursion 1.7 LV Septum (systole) 1.6 Left Atria (s.<4.0cm> 3.5 LVPW d(<1.2cm) 1.5 RV (d.<2.3cm) 2.9 LVPW (sytole) 1.8 LV diastole(<5.6CM) 5.0 MV E-F(>70mm/sec) LV systole 3.6 LVOT Diameter 1.6 MV exc.(>10mm) 1.6 Est.ejection fraction (50-75%) Pericardial Effusion N DOPPLER: LVIT A 73.0 E 93.0 LA RVSP 20 LVOT 156 AOP1/2T Asc. Ao 177 RVOT 112 RA PA 147 AV Gradient Peak 12.50 AV Mean 7.06 AV Area 1.5 MV Gradient Peak 3.62 MV Mean 1.6 MV Area COMMENTS: Epic Analyst: Patricia ANDERSEN Combo Welder:2 Dr. Estrada TAPE# PACS DATE OF SERVICE: 06/19/2016 Echocardiogram Report REFERRING PHYSICIAN: Robert Arenas MD. INDICATION: Hypotension, arrhythmias. DESCRIPTION: Left ventricle demonstrates left ventricular hypertrophy. No wall motion abnormalities are noted. Estimated ejection fraction is 60%. Mitral ECHOCARDIOGRAM REPORT [id number] FERNY SWANN valve is structurally normal. There is trivial regurgitation seen. Left atrium is normal size. The aortic valve is trileaflet. There is mild insufficiency seen, but no evidence of stenosis. Right ventricle is mildly dilated. Tricuspid valve is structurally normal. There is trivial regurgitation seen. Right atrium is normal size. There is no pericardial effusion noted. IMPRESSION: 1. Left ventricular hypertrophy with preserved ejection fraction of 60%. 2. Trivial mitral regurgitation. 3. Mild aortic insufficiency. 4. Trivial tricuspid regurgitation. TRANSINT:[id number] Voice Confirmation ID: [id number] DOCUMENT ID: [id number] GABRIEL ESTRADA M.D. 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
[2016-06-24 11:00] VITALS: BP 112/83
--- NOTE | 2016-06-24 11:00 | NUR ---
NO CHANGES IN PT STATUS AT THIS TIME. CALLS TO GET UP TO BEDSIDE COMMODE. VITAL SIGNS STABLE. PSYCH CONSULT FAXED AND PT IS TO BE SEEN TODAY FOR PSYCH PLACEMENT
--- NOTE | 2016-06-24 13:00 | NUR ---
WAITING FOR PSYCH TO SEE PT AND MAKE RECOMMENDATIONS. NO CHANGES AT THIS TIME. UPDATE GIVEN TO AT BEDSIDE. PT STABLE. WILL CONTINUE TO MONITOR
[2016-06-24 15:00] VITALS: BP 110/86
--- NOTE | 2016-06-24 15:00 | NUR ---
EEG PERFORMED ON PT AT THIS TIME. PT TOLERATING WELL WITH NO TROUBLE. VITAL SIGNS STABLE
--- NOTE | 2016-06-24 16:08 | NUR ---
CM REASSESSMENT NOTE: UPDATE CLINICAL SENT TO KEILA RUEDA
[2016-06-24 19:00] VITALS: BP 114/70
--- NOTE | 2016-06-24 19:10 | NUR ---
SHIFT ASSESSMENT COMPLETE PER FLOWSHEET, SEE FOR DETAILS. PATIENT SITTING UP IN CHAIR AT THIS TIME WATCHING TV. PATIENT ALERT AND ORIENTED. CARRIES CONVERSATION WELL. EXCITED TO GO TO INPATIENT REHAB. RR EVEN AND NON-LABORED. BREATH SOUNDS CLEAR. S1S2 NOTED. BOWEL SOUNDS ACTIVE X4. PATIENT WALKS INDEPENDENTLY AND HAS A STEADY GATE. PERIPHERAL PULSES +2, CAP REFILL < 3 SEC. LEFT GROIN CVL FLUSHED. PATENT, DRESSING C/D/I, NO REDNESS NOTED. VSS, WILL MONITOR PATIENT.
--- NOTE | 2016-06-24 21:10 | NUR ---
FAMILY AT BEDSIDE, UPDATE GIVEN.
[2016-06-24 23:00] VITALS: BP 100/58
--- NOTE | 2016-06-24 23:00 | NUR ---
REASSESSMENT COMPLETE. NO ACUTE CHANGES FROM SHIFT ASSESSMENT. PATIENT RESTING WELL, VSS, WILL MONITOR.
--- NOTE | 2016-06-25 01:00 | NUR ---
PATIENT RESTING WITH EYES CLOSED. RR EVEN AND NON-LABORED. NO DISTRESS SEEN.
[2016-06-25 03:00] VITALS: BP 115/77
--- NOTE | 2016-06-25 03:00 | NUR ---
REASSESSMENT COMPLETE, NO CHANGES. PATIENT DENIES NEED AT THIS TIME. VSS.
[2016-06-25 04:00] VITALS: BP 119/63
--- NOTE | 2016-06-25 05:30 | NUR ---
PT RESTING AT THIS TIME, DENIES ANY NEEDS OR WANTS, WILL CON'T TO MONITOR
--- NOTE | 2016-06-25 07:00 | NUR ---
SLEEPING NO DISTRESS NOTED. ASSESSMENT COMPLETE PER FLOWSHEET. 0
--- NOTE | 2016-06-25 08:30 | NUR ---
EATING BREAKFAST NO CO AT TIME.
--- NOTE | 2016-06-25 11:30 | NUR ---
EATING LUNCH NO CO AT TIME
--- NOTE | 2016-06-25 11:46 | NUR ---
CM REASSESSMENT NOTE: CM SENT REFERRAL TO (COLIN) AT [facility] AND THEY WILL FIND A BED IF PATIENT ACCEPTED FOR IP PSYCH. [facility] [phone] FAX [phone]
[2016-06-25 13:00] VITALS: BP 109/57
[2016-06-25 15:58] VITALS: BP 135/78
--- NOTE | 2016-06-25 16:43 | NUR ---
CM REASSESSMENT NOTE: JAIN AT [facility] HAS ACCEPTED PATIENT TODAY. [facility] WILL CALL ICU WHEN BED IS READY.
--- NOTE | 2016-06-25 17:00 | NUR ---
TRANSFER TO [facility] VIA EMS.
--- NOTE | 2016-06-28 07:49 | EEG ---
PATIENT:FERNY SWANN DATE OF SERVICE: 06/18/16 MEDICAL RECORD: [id number] DATE OF : 79 LOCATION:D.230 D.ICU ADMISSION DATE: 06/18/16 REFERRING PHYSICIAN: INTERPRETING PHYSICIAN: KIMBERLY NICHOLE MD DATE OF SERVICE: 06/25/2016 Referred by myself as an inpatient in room 2306. ELECTROENCEPHALOGRAM NUMBER: [id number]. DATE OF EXAMINATION: 06/24/2016 at 3:00 p.m. TECHNICAL DATA: This electroencephalographic recording consists of approximately 20 minutes of data collection utilizing the international 10/20 system of electrode placement and both referential and non-referential montages. Sixteen channels of electrocerebral recording are accompanied by a 17th channel dedicated to the electrocardiographic rhythm and 2 channels of electromyographic recording. Recording is performed in the awake and drowsy states utilizing activation by photic stimulation. ELECTROENCEPHALOGRAPHIC DATA: The awake state comprises only approximately 20% of the recorded electrocerebral activity. Electromyographic artifact is prominent and rapid eye movements are seen. The posterior dominant background is not well-developed, but consists of a symmetric, semi-arrhythmic, waxing and waning 7-8 Hz alpha activity. The manufacturing production technician did not establish effective eye opening. The drowsy state comprises the remaining portion of the recorded electrocerebral activity. Electromyographic artifact is diminished and rapid eye movements are not seen. The posterior dominant background is relatively suppressed. Also seen is an intermittent, irregular, generalized and symmetric 3-4 Hz delta slowing, which occurs for periods of 1-2 seconds approximately once every 2-3 pages. No abnormal or focal slowing is identified. No epileptiform discharges are seen. Photic stimulation induces no abnormal change in the recorded electrocerebral activity. INTERPRETATION: Normal (awake and drowsy). This is a normal electroencephalographic recording. TRANSINT:[id number] Voice Confirmation ID: [id number] DOCUMENT ID: [id number] ELECTROENCEPHALOGRAM REPORT [id number] FERNY SWANN KIMBERLY NICHOLE MD at 0749 CC: [id number] DICTATION DATE: 06/25/16 0654 DRILL SETUP OPERATOR: 06/25/16 1051 DIS IN 06/25/16 [id number] [place] [address]
--- NOTE | 2016-06-28 14:43 | PN ---
PATIENT:FERNY SWANN MEDICAL RECORD: [id number] LOCATION:[facility].230 ADMISSION DATE: 06/18/16 PROGRESS NOTE DATE OF SERVICE: 06/24/2016 SUBJECTIVE: The patient's case was discussed with staff. OBJECTIVE: The patient is off the ventilator. She is breathing on her own, is alert and cooperative. She endorses numerous depressive symptoms and indicates that she did attempt to kill herself. She is willing to go to inpatient psychiatric care. ASSESSMENT: Major depression. PLAN: The patient should be transferred to acute psychiatric inpatient care when medically stable. She took an overdose 2 weeks ago and has been on a ventilator ever since. I think her prognosis is guarded based upon the outcome of psychiatric care. This was a very serious attempt. As mentioned, she was on a ventilator for a long time. She also took 300 various different types of pills. She is still quite depressed and obviously is in need of psychiatric care. I would recommend that she be transferred at your earliest convenience. TRANSINT:[id number] Voice Confirmation ID: [id number] DOCUMENT ID: [id number] NERY DAI MD at 1443 CC: [id number] DICTATION DATE: 06/24/16 1510 AIRPLANE ENGINEER: 06/25/16 0024 DIS IN 06/25/16 [facility] [address] [place] [address]
== END 2016-06-25 18:26 | disposition short-term general hospital (02) | DRG 917 ==
LOC: D.ER 13:50 → D.ICU 16:29
PROVIDERS: Emergency Medicine; Family Medicine Adult Medicine; Internal Medicine Pulmonary Disease; Psychiatry & Neurology Neurology; ADMIT Family Medicine
PROC: 03HY32Z Insertion of Monitoring Device into Upper Artery, Percutaneous Approach (ICD-10-PCS; principal; 2016-06-18)
PROC: 0T9B70Z Drainage of Bladder with Drainage Device, Via Natural or Artificial Opening (ICD-10-PCS; 2016-06-18)
PROC: 5A1945Z Respiratory Ventilation, 24-96 Consecutive Hours (ICD-10-PCS; 2016-06-18)
DX: T42.4X2A Poisoning by benzodiazepines, intentional self-harm, initial encounter (principal); J96.01 Acute respiratory failure with hypoxia; J69.0 Pneumonitis due to inhalation of food and vomit; G93.40 Encephalopathy, unspecified; N39.0 Urinary tract infection, site not specified; J44.1 Chronic obstructive pulmonary disease with (acute) exacerbation; J98.11 Atelectasis; T42.3X2A Poisoning by barbiturates, intentional self-harm, initial encounter; T40.7X2A Poisoning by cannabis (derivatives), intentional self-harm, initial encounter; R34 Anuria and oliguria; F32.9 Major depressive disorder, single episode, unspecified; E87.6 Hypokalemia; E83.42 Hypomagnesemia; I10 Essential (primary) hypertension; B96.20 Unspecified Escherichia coli [E. coli] as the cause of diseases classified elsewhere; D64.9 Anemia, unspecified; Z72.0 Tobacco use; Z78.1 Physical restraint status; R00.8 Other abnormalities of heart beat; J32.0 Chronic maxillary sinusitis; J32.2 Chronic ethmoidal sinusitis; J32.3 Chronic sphenoidal sinusitis

== ENCOUNTER 2017-02-04 13:49 | Emergency (ER) | payer MEDICAID ==
[2016-06-19 09:17] VITALS: BMI 21.9
[~2017-02-04 13:49] MED LIST changes: +CELEXA40 MG PO; +DEPAKOTE ER500 MG PO; +DESERYL100 MG PO; +OXYBUTYNIN CHLOR5 MG PO; +ROBAXIN500 MG PO; +TOFRANIL25 MG PO
[2017-02-04 14:51] LABS: BASOPHILS 0.3 % (0-2); EOSINOPHILS 0.7 % (0-7); HEMATOCRIT 44.6 % (36.0-48.0); HEMOGLOBIN 15.4 g/dL (12-16); IMMATURE GRANULOCYTES 0.3 % (0-5); LYMPHOCYTES 36.5 % (15-50); MCH 30.2 pg (26.0-34.0); MCHC 34.5 g/dL (31.0-37.0); MCV 87.5 fL (80.0-100.0); MONOCYTES 8.9 % (2-11); NEUTROPHILS 53.3 % (40-80); WBC 12.7 10x3/uL (4.8-10.8)
[2017-02-04 14:53] LABS: PLATELET COUNT 270 10x3/uL (130-400)
[2017-02-04 15:05] LABS: ALBUMIN 3.6 g/dL (3.4-5.0); ALKALINE PHOSPHATASE 92 U/L (46-116); ALT (SGPT) 48 U/L (10-68); BILIRUBIN - TOTAL 0.41 mg/dL (0.2-1.3); CALC OSMOLALITY 277 mosm/kg (275-300); CALCIUM 9.4 mg/dL (8.5-10.1); CARBON DIOXIDE 24.7 mmol/L (21.0-32.0); CHLORIDE - SERUM 108 mmol/L (98-107); GLUCOSE 75 mg/dL (74-106); POTASSIUM - SERUM 3.9 mmol/L (3.5-5.1); PROTEIN - SERUM 7.6 g/dL (6.4-8.2); SODIUM 140 mmol/L (136-145); UREA NITROGEN 12 mg/dL (7-18); eGFR NON AFRICAN AMERICAN 65 mL/min (90-120)
[2017-02-04 15:16] LABS: CHOL - HDL RATIO 2.2 ratio (2.3-4.1); CHOLESTEROL, TOTAL 182 mg/dL (0-200); CKMB 0.4 U/L (0.0-3.6); CREATINE KINASE 59 UL (21-215); HDL CHOLESTEROL 84 mg/dL (32-96); LDL CHOLESTEROL 82 mg/dL (0-100); TRIGLYCERIDE 82 mg/dL (30-200); TROPONIN-I < 0.017 ng/mL (0.000-0.060)
[2017-02-04 15:21] LABS: UDS - AMPHET NEGATIVE QUAL (NEGATIVE); UDS - BARB NEGATIVE QUAL (NEGATIVE); UDS - BENZO NEGATIVE QUAL (NEGATIVE); UDS - COCAINE NEGATIVE QUAL (NEGATIVE); UDS - OPIATE NEGATIVE QUAL (NEGATIVE); UDS - PCP NEGATIVE QUAL (NEGATIVE); UDS - THC POSITIVE QUAL (NEGATIVE)
[2017-02-04 15:39] LABS: APPEARANCE CLEAR (CLEAR); BILIRUBIN NEGATIVE (NEGATIVE); COLOR YELLOW (YELLOW); GLUCOSE NEGATIVE (NEGATIVE); KETONE NEGATIVE (NEGATIVE); NITRITE NEGATIVE (NEGATIVE); PROTEIN NEGATIVE (NEGATIVE); UROBILINOGEN NORMAL (NORMAL)
[2017-02-04 15:40] LABS: BACTERIA FEW /hpf (NONE SEEN); RED CELLS - URINE OCC /hpf (0-5); WHITE CELLS - URINE 0-5 /hpf (0-5)
--- NOTE | 2017-02-16 15:46 | CN ---
PATIENT NAME:FERNY RODAS MEDICAL RECORD: [id number] : 79 LOCATION:.ER ADMIT DATE: ACCOUNT: [id number] CONSULTING PHYSICIAN: DEEPIKA SOLIMAN MD REFERRING PHYSICIAN: STARR BAUMANN MD DATE OF CONSULTATION: 02/04/2017 DIAGNOSES: 1. Bradycardia. 2. Anxiety disorder. HISTORY OF PRESENT ILLNESS: Ms. Rodas presents with anxiety and chest pain. She does have a history of bradycardia. She was seen by Dr. Jaimes at [facility]. She had a LINQ monitor placed. She is concerned that she is having episodes of bradycardia. We interrogated the LINQ monitor; however, there were no pauses, no bradycardic episodes, no tachycardic episodes. No atrial fibrillation. PHYSICAL EXAMINATION: GENERAL APPEARANCE: Well-nourished, well-developed, appears stated age. Level of distress, comfortable. PSYCHIATRIC: Mental status, alert, normal affect. Orientation, oriented to time, place and person. EYES: Lids and conjunctiva, noninjected. No discharge, no pallor. ENT: Lips, teeth, gums, normal dentition. Oropharynx, no cyanosis, no pallor. NECK: Carotid arteries, bilateral normal upstroke, no bruits, no thrills. JUGULAR VEINS: No jugular venous pressure or distention. CERVICAL LYMPH NODES: Nontender, nonenlarged. THYROID: Not enlarged. Nontender. No nodules. LUNGS: Respiratory effort, unlabored. CHEST: Normal curvature. No thoracic deformity. No chest wall tenderness. Percussion, resonant. Auscultation, clear. No wheezes, no rales, no rhonchi. CARDIOVASCULAR: Precordial exam, nondisplaced. No heaves or pericardial thrills. Rate and rhythm, regular. Heart sounds, normal S1, normal S2. No S3, no gallop, no rub. Systolic murmur, not heard. Diastolic murmur, not heard. EXTREMITIES: No cyanosis, no edema. Peripheral pulses, full and equal in all extremities, except as noted. No bruits appreciated. ABDOMEN: Soft, nondistended. Normal aorta. No bruit. Nontender. No masses. Liver, nontender, no hepatomegaly. Spleen, nontender, no splenomegaly. MUSCULOSKELETAL: No joint tenderness. No joint swelling. No erythema. NEUROLOGICAL: Normal gait, normal strength, normal tone. SKIN: Warm and dry. OVERALL IMPRESSION: At this time, her symptomatology is secondary to her anxiety, no documented cardiac arrhythmias are present. TRANSINT:[id number] Voice Confirmation ID: [id number] DOCUMENT ID: [id number] CONSULT REPORT [id number] FERNY RODAS, DEEPIKA MILES at 1546 CC: [id number] DICTATION DATE: 02/04/17 1503 SOCIAL SCIENCE ANALYST: 02/04/17 1536 DEP ER 02/04/17 [facility] [address] [place] [address]
== END 2017-02-04 16:20 | disposition home or self-care (01) ==
LOC: D.ER 13:49
PROVIDERS: Emergency Medicine
DX: R00.1 Bradycardia, unspecified (principal); R55 Syncope and collapse; F41.9 Anxiety disorder, unspecified; R07.89 Other chest pain; B19.20 Unspecified viral hepatitis C without hepatic coma; F17.200 Nicotine dependence, unspecified, uncomplicated

== ENCOUNTER 2017-03-12 23:38 | Inpatient (IN) | payer MEDICAID ==
[~2017-03-12] VITALS: Ht 160 cm; Wt 63.0 kg
--- NOTE | ~2017-03-12 | EC ---
PATIENT:FERNY SWANN DATE OF SERVICE: 03/14/17 SEX: F MEDICAL RECORD: [id number] DATE OF : 79 LOCATION:[place] [address] AGE OF PATIENT: 41 ADMISSION DATE: 03/14/17 REFERRING PHYSICIAN: INTERPRETING PHYSICIAN: DEEPIKA SOLIMAN MD ECHOCARDIOGRAM REPORT ECHO CHARGES CLINICAL DIAGNOSIS: ECHOCARDIOGRAPHIC MEASUREMENTS (adult normal given) AC root (d.<3.7cm) cm LV Septum d (<1.2 cm> cm Valve Excursion cm LV Septum (systole) cm Left Atria (s.<4.0cm> cm LVPW d(<1.2cm) cm RV (d.<2.3cm) cm LVPW (sytole) cm LV diastole(<5.6CM) cm MV E-F(>70mm/sec) cm LV systole cm LVOT Diameter cm MV exc.(>10mm) cm Est.ejection fraction (50-75%) % Pericardial Effusion DOPPLER: LVIT cm/sec A cm/sec E cm/sec LA cm/sec RVSP mmHg LVOT cm/sec AOP1/2T m/s Asc. Ao cm/sec RVOT cm/sec RA cm/sec PA cm/sec AV Gradient Peak mmHg AV Mean mmHg AV Area cm MV Gradient Peak mmHg MV Mean mmHg MV Area cm COMMENTS: Human Resources Representative: Snow Plow Tractor Operator: [place] DATE OF SERVICE: 03/14/2017 Echocardiogram FINDINGS: 1. Left ventricular chamber size is within normal limits. Left ventricular systolic function is normal. Overall ejection fraction estimated at 55-60%. 2. Left atrium, right atrium, and right ventricular chamber sizes are within normal limits. 3. Valvular structures have normal structure and motion. ECHOCARDIOGRAM REPORT [id number] FERNY SWANN 4. Doppler interrogation reveals [id number]-tj-[id number] aortic insufficiency, vjmi-be-oxrrbqrr mitral regurgitation, moderate tricuspid regurgitation, no other valvular insufficiency or stenosis. Pulmonary systolic pressure is preserved at 34 mmHg. 5. No evidence of pericardial effusion or left ventricular thrombus. TRANSINT:[id number] Voice Confirmation ID: [id number] DOCUMENT ID: [id number] DEEPIKA SOLIMAN MD at 1025 CC: [id number] DICTATION DATE: 03/14/17 1229 STUNT MAN: 03/14/17 1239 DIS IN 03/15/17 [facility] [address] [facility] [place] [address]
--- NOTE | ~2017-03-12 | CN ---
PATIENT NAME:FERNY RODAS MEDICAL RECORD: [id number] : 79 LOCATION:[place].2314 ADMIT DATE: 03/14/17 ACCOUNT: [id number] CONSULTING PHYSICIAN: DEEPIKA SOLIMAN MD REFERRING PHYSICIAN: RUTH LAKE MD DATE OF CONSULTATION: 03/14/2017 CARDIOLOGY CONSULTATION DATE OF SERVICE: 03/14/2017 DIAGNOSES: 1. Bradycardia. 2. Hypertension. HISTORY OF PRESENT ILLNESS: Ms. Rodas presents with a multiple drug overdose and is now bradycardic. The bradycardia is not new. She was seen by Dr. Jaimes at [facility]. She has a Holter monitor. She is to see him early next month for reevaluation of the bradycardia. She was on prazosin and that is one of the medications that she took in her overdose along with multiple other medications. Prazosin overdose can cause bradycardia. PHYSICAL EXAMINATION: GENERAL APPEARANCE: Well-nourished, well-developed, appears stated age. Level of distress, comfortable. PSYCHIATRIC: Mental status, alert, normal affect. Orientation, oriented to time, place and person. EYES: Lids and conjunctiva, noninjected. No discharge, no pallor. ENT: Lips, teeth, gums, normal dentition. Oropharynx, no cyanosis, no pallor. NECK: Carotid arteries, bilateral normal upstroke, no bruits, no thrills. JUGULAR VEINS: No jugular venous pressure or distention. CERVICAL LYMPH NODES: Nontender, nonenlarged. THYROID: Not enlarged. Nontender. No nodules. LUNGS: Respiratory effort, unlabored. CHEST: Normal curvature. No thoracic deformity. No chest wall tenderness. Percussion, resonant. Auscultation, clear. No wheezes, no rales, no rhonchi. CARDIOVASCULAR: Precordial exam, nondisplaced. No heaves or pericardial thrills. Rate and rhythm, regular. Heart sounds, normal S1, normal S2. No S3, no gallop, no rub. Systolic murmur, not heard. Diastolic murmur, not heard. EXTREMITIES: No cyanosis, no edema. Peripheral pulses, full and equal in all extremities, except as noted. No bruits appreciated. ABDOMEN: Soft, nondistended. Normal aorta. No bruit. Nontender. No masses. Liver, nontender, no hepatomegaly. Spleen, nontender, no splenomegaly. MUSCULOSKELETAL: No joint tenderness. No joint swelling. No erythema. NEUROLOGICAL: Normal gait, normal strength, normal tone. SKIN: Warm and dry. REVIEW OF SYSTEMS: The patient reports easy bruising but reports no swollen glands. The patient reports no fever, no night sweats, no significant weight gain, no significant weight loss. No significant exercise tolerance. The patient reports no dry eyes, no irritation, no vision change. Patient reports no difficulty hearing and no ear pain. Patient reports no frequent nose bleeds or nose and sinus problems. Patient reports on arm pain on exertion. No shortness of breath while lying down. No history of heart murmur. Patient reports no cough, no wheezing or coughing up blood. Patient reports no CONSULT REPORT [id number] FERNY RODAS abdominal pain, no vomiting. Normal appetite. No diarrhea and not vomiting blood. No nausea and no constipation. Patient reports no incontinence. No difficulty urinating. No hematuria. No increased frequency. Patient reports no muscle aches. No weakness, no arthralgias, no back pain. No swelling of the extremities. Patient reports no abnormal mole, no jaundice, no rashes. Reports no loss of consciousness. No weakness and no numbness. No seizures, dizziness, or headaches. The patient reports no depression, no sleep disturbance, feeling safe in a relationship and no alcohol abuse. Patient reports on fatigue. Reports no runny nose or sinus pressure. No itching, no hives, and no frequent sneezing. OVERALL IMPRESSION: Bradycardia. Her systolic blood pressure is over 100 with this. At this time, we will get an echocardiogram, check thyroid on her. No other cardiac workup or treatment is necessary. We will let her follow up with Dr. Jaimes regarding permanent pacer. TRANSINT:[id number] Voice Confirmation ID: [id number] DOCUMENT ID: [id number] DEEPIKA SOLIMAN MD at 1025 CC: [id number] DICTATION DATE: 03/14/17 1223 MAINTENANCE ELECTRICIAN: 03/14/17 1251 DIS IN 03/15/17 [facility] [address] [place] [address]
--- NOTE | ~2017-03-12 | CN ---
PATIENT NAME:FERNY SWANN MEDICAL RECORD: [id number] : 79 LOCATION:[place].2307 ADMIT DATE: 03/14/17 ACCOUNT: [id number] CONSULTING PHYSICIAN: NERY DAI MD REFERRING PHYSICIAN: RUTH LAKE MD DATE OF CONSULTATION: 03/14/2017 PSYCHIATRIC CONSULTATION IDENTIFYING DATA: The patient is 41 years old and she was admitted to the hospital on a voluntary basis secondary to an overdose. CHIEF COMPLAINT: Depression. HISTORY OF PRESENT ILLNESS: The patient has a male roommate with whom she has a close but nonsexual relationship. Apparently, they had an argument. The patient bought some vodka, took her medications, and went to her father's grave, where she proceeded to take an overdose and drink the vodka. After doing so, she became afraid, frightened, and had some remorse and came to the hospital to seek treatment. She does have a history of overdose and in fact was here in May of 2016 and then in the summer of 2015 for overdoses. She has taken overdoses at other times and has been to [facility] locally at least twice and then to [facility] in [place] and to [facility] in [place]. She endorses numerous neurovegetative depressive symptoms, but denies any current thoughts of harming herself. She denies psychotic symptoms and does not feel she has a substance abuse problem. Her urine drug screen was positive for marijuana. MENTAL STATUS EXAMINATION: The patient is awake; alert; and oriented to person, place, time, and situation. Her mood is depressed. Her affect is constricted. Thought processes are circumstantial. Memory, concentration, and abstraction abilities are mildly impaired. She denies any intent to harm herself or others as well as overt psychotic symptoms. ASSESSMENT: 1. Major depression, severe, recurrent, without psychotic features. 2. Marijuana abuse. 3. Status post polysubstance overdose. PLAN: At this time, the patient denies a substance use disorder including an alcohol use disorder. She is no longer reporting suicidal thoughts, but she still has a depressed mood. She has a long history of psychiatric treatment on inpatient and outpatient basis and it is my recommendation that she be transferred to inpatient psychiatric care once medically stabilized. She is agreeable to this plan. TRANSINT:[id number] Voice Confirmation ID: [id number] DOCUMENT ID: [id number] CONSULT REPORT [id number] FERNY SWANN PETER MD at 1442 CC: [id number] DICTATION DATE: 03/14/17 1433 EMBEDDED LINUX DEVELOPER: 03/14/17 1728 ADM IN [facility] [address] [id number]
[2017-03-13] VITALS (64 sets, daily range): BP systolic 67–119; BP diastolic 29–104; Ht 160 cm; Wt 63.0 kg
[2017-03-13 00:12] LABS: APPEARANCE CLEAR (CLEAR); BILIRUBIN NEGATIVE (NEGATIVE); COLOR YELLOW (YELLOW); GLUCOSE NEGATIVE (NEGATIVE); KETONE NEGATIVE (NEGATIVE); NITRITE NEGATIVE (NEGATIVE); PROTEIN NEGATIVE (NEGATIVE); UROBILINOGEN NORMAL (NORMAL)
[2017-03-13 00:18] LABS: BASOPHILS 0.2 % (0-2); EOSINOPHILS 0.4 % (0-7); HEMATOCRIT 40.1 % (36.0-48.0); HEMOGLOBIN 13.9 g/dL (12-16); IMMATURE GRANULOCYTES 0.2 % (0-5); LYMPHOCYTES 27.4 % (15-50); MCH 29.8 pg (26.0-34.0); MCHC 34.7 g/dL (31.0-37.0); MCV 86.1 fL (80.0-100.0); MEAN PLATELET VOLUME 9.9 fL (7.4-10.4); MONOCYTES 8.2 % (2-11); NEUTROPHILS 63.6 % (40-80); PLATELET COUNT 270 10x3/uL (130-400); RBC 4.66 10x6/uL (4.00-5.40); RDW 12.9 % (11.5-14.5); WBC 12.8 10x3/uL (4.8-10.8)
[2017-03-13 00:19] LABS: ALBUMIN 3.5 g/dL (3.4-5.0); ANION GAP 16.2 mmol/L (8-16); BILIRUBIN - TOTAL 0.21 mg/dL (0.2-1.3); CALCIUM 8.9 mg/dL (8.5-10.1); CARBON DIOXIDE 20.9 mmol/L (21.0-32.0); HCG SERUM NEGATIVE (NEGATIVE); POTASSIUM - SERUM 3.1 mmol/L (3.5-5.1); PROTEIN - SERUM 7.3 g/dL (6.4-8.2)
[2017-03-13 00:20] LABS: UDS - AMPHET NEGATIVE QUAL (NEGATIVE); UDS - BARB NEGATIVE QUAL (NEGATIVE); UDS - BENZO NEGATIVE QUAL (NEGATIVE); UDS - COCAINE NEGATIVE QUAL (NEGATIVE); UDS - OPIATE NEGATIVE QUAL (NEGATIVE); UDS - PCP NEGATIVE QUAL (NEGATIVE); UDS - THC POSITIVE QUAL (NEGATIVE)
[2017-03-13] MEDS ORDERED: MINIPRESS1 MG PO (17:47)
[2017-03-14] VITALS (44 sets, daily range): BP systolic 80–126; BP diastolic 40–107
[2017-03-14 04:02] LABS: ALBUMIN 2.9 g/dL (3.4-5.0); ALKALINE PHOSPHATASE 82 U/L (46-116); ALT (SGPT) 56 U/L (10-68); CALC OSMOLALITY 282 mosm/kg (275-300); CALCIUM 8.2 mg/dL (8.5-10.1); CARBON DIOXIDE 23.7 mmol/L (21.0-32.0); CHLORIDE - SERUM 111 mmol/L (98-107); GLUCOSE 105 mg/dL (74-106); SODIUM 143 mmol/L (136-145); UREA NITROGEN 7 mg/dL (7-18)
[2017-03-14 04:09] LABS: CREATININE - SERUM 0.7 mg/dL (0.6-1.3)
[2017-03-14 04:10] LABS: POTASSIUM - SERUM 4.2 mmol/L (3.5-5.1); eGFR NON AFRICAN AMERICAN > 90 mL/min (90-120)
[2017-03-14 11:02] LABS: MAGNESIUM - SERUM 1.8 mg/dL (1.8-2.4); THYROID STIMULATING HORMONE 0.46 uIU/mL (0.36-3.74)
[2017-03-15] VITALS (12 sets, daily range): BP systolic 90–120; BP diastolic 45–76
[2017-03-15 04:21] LABS: BASOPHILS 0.3 % (0-2); EOSINOPHILS 1.2 % (0-7); HEMATOCRIT 36.7 % (36.0-48.0); HEMOGLOBIN 12.2 g/dL (12-16); IMMATURE GRANULOCYTES 0.1 % (0-5); LYMPHOCYTES 39.7 % (15-50); MCH 29.3 pg (26.0-34.0); MCHC 33.2 g/dL (31.0-37.0); MEAN PLATELET VOLUME 10.5 fL (7.4-10.4); MONOCYTES 10.8 % (2-11); NEUTROPHILS 47.9 % (40-80); PLATELET COUNT 245 10x3/uL (130-400); RBC 4.17 10x6/uL (4.00-5.40); WBC 9.1 10x3/uL (4.8-10.8)
[2017-03-15 04:46] LABS: ALBUMIN 2.9 g/dL (3.4-5.0); ALKALINE PHOSPHATASE 79 U/L (46-116); ALT (SGPT) 48 U/L (10-68); BILIRUBIN - TOTAL 0.36 mg/dL (0.2-1.3); CALCIUM 8.8 mg/dL (8.5-10.1); CARBON DIOXIDE 24.4 mmol/L (21.0-32.0); CHLORIDE - SERUM 110 mmol/L (98-107); CREATININE - SERUM 0.7 mg/dL (0.6-1.3); GLUCOSE 84 mg/dL (74-106); PROTEIN - SERUM 6.1 g/dL (6.4-8.2); SODIUM 144 mmol/L (136-145); eGFR NON AFRICAN AMERICAN > 90 mL/min (90-120)
[2017-03-15 04:49] LABS: CALC OSMOLALITY 282 mosm/kg (275-300); UREA NITROGEN 4 mg/dL (7-18)
== END 2017-03-15 18:02 | disposition short-term general hospital (02) | DRG 918 ==
LOC: D.ER 23:38 → OBSVTIME 03-13 06:25 → D.ICU 03-13 06:25
PROVIDERS: Emergency Medicine; Family Medicine; Internal Medicine Nephrology
DX: T43.222A Poisoning by selective serotonin reuptake inhibitors, intentional self-harm, initial encounter (principal); F33.2 Major depressive disorder, recurrent severe without psychotic features; T43.212A Poisoning by selective serotonin and norepinephrine reuptake inhibitors, intentional self-harm, initial encounter; T44.6X2A Poisoning by alpha-adrenoreceptor antagonists, intentional self-harm, initial encounter; T51.0X2A Toxic effect of ethanol, intentional self-harm, initial encounter; R00.1 Bradycardia, unspecified; I10 Essential (primary) hypertension; J44.9 Chronic obstructive pulmonary disease, unspecified; Z72.0 Tobacco use